=== PATIENT | female | born 1970 ===

== ENCOUNTER → 2025-03-28 | Outpatient (REF) | payer BC, OTHER ==
[2025-03-28 19:01] LABS: C REACTIVE PROTEIN QUANTITATIV 2.94 MG/DL (<1.0)
[2025-03-28 19:15] LABS: RHEUMATOID FACTOR QUANT 882.4 IU/ML (<14)
[2025-04-01 18:02] LABS: ANA TITER 2 1:320 titer (NEGATIVE)
== END ==
LOC: M LAB REF 17:31
PROVIDERS: ATTEND Physician Assistant Medical
DX: M06.9 Rheumatoid arthritis, unspecified (principal)